=== PATIENT | female | born 1980 | race American Indian/Alaskan Native ===

== ENCOUNTER 2018-08-25 11:42 | Day surgery (SDC) | payer BC ==
[~2018-08-25 11:42] MED LIST: LACTATED RINGER'S 1,000 ML IV; ROCURONIUM 50 MG INJ
[2018-08-25 12:43] LABS: ADD MAN DIFF? NO
[2018-08-25 12:46] LABS: BASOPHILS % 0.5 % (0.0-2.0); EOSINOPHILS # 0.1 10^3/ul (0.0-0.5); EOSINOPHILS % 0.9 % (0.0-7.0); HEMATOCRIT 36.7 % (37.0-47.0); LYMPHOCYTES # 1.7 10^3/ul (0.8-2.9); LYMPHOCYTES % 26.3 % (15.0-51.0); MEAN CORPUSCULAR HEMOGLOBIN 29.9 pg (29.0-33.0); MEAN CORPUSCULAR HGB CONC 32.7 g/dl (32.0-37.0); MEAN CORPUSCULAR VOLUME 91.3 fl (82.0-101.0); MEAN PLATELET VOLUME 9.6 fl (7.4-10.4); MONOCYTE # 0.3 10^3/ul (0.3-0.9); MONOCYTES % 5.4 % (0.0-11.0); NEUTROPHIL # 4.2 10^3/ul (1.6-7.5); NEUTROPHILS % 66.7 % (39.0-77.0); PLATELET COUNT 313 10^3/UL (140-415); RED BLOOD COUNT 4.02 10^6/ul (4.20-5.40); RED CELL DISTRIBUTION WIDTH 13.7 % (11.5-14.5)
[2018-08-25 12:46] LABS: WHITE BLOOD COUNT 6.3 10^3/ul (4.8-10.8)
[2018-08-25 13:03] LABS: ALANINE AMINOTRANSFERASE 31 IU/L (13-69); ALBUMIN 3.6 g/dl (3.3-4.9); ALKALINE PHOSPHATASE 58 IU/L (42-121); ANION GAP 13 (8-16); ASPARTATE AMINO TRANSFERASE 22 IU/L (15-46); BILIRUBIN,INDIRECT 0.8 mg/dl (0-1.1); BILIRUBIN,TOTAL 0.8 mg/dl (0.2-1.3); BLOOD UREA NITROGEN 10 mg/dl (7-20); CALCIUM 9.3 mg/dl (8.4-10.2); CARBON DIOXIDE 26 mmol/L (21-31); CHLORIDE 106 mmol/L (97-110); CREATININE 0.61 mg/dl (0.44-1.00); GLUCOSE 94 mg/dl (70-220); POTASSIUM 3.9 mmol/L (3.5-5.1); SODIUM 141 mmol/L (135-144); TOTAL PROTEIN 7.2 g/dl (6.1-8.1)
[2018-08-25 13:17] LABS: PROTIME 13.3 Sec (11.9-14.9)
[2018-08-25 13:18] LABS: PARTIAL THROMBOPLASTIN TIME 31.2 Sec (23.0-35.0)
[2018-08-25] MEDS ORDERED: DIPHENHYDRAMINE 50 MG INJ IV (15:30)
[2018-08-25] MEDS ORDERED: HYDROmorphONE 1 MG/5 ML IV SYRINGE IV ×2 (15:30)
[2018-08-25] MEDS ORDERED: MEPERIDINE 25 MG INJ IV (15:30)
[2018-08-25] MEDS ORDERED: ALBUTEROL 0.083% (NEB) 2.5 MG/3 ML AMP HHN (15:30)
[2018-08-25] MEDS ORDERED: METOCLOPRAMIDE 10 MG INJ IV (15:30)
[2018-08-25] MEDS ORDERED: ONDANSETRON 4 MG INJ IV (15:30)
[2018-08-25] MEDS ORDERED: FENTAnyl 50 MCG/ML VIAL IV (15:30)
[2018-08-25] MEDS ORDERED: ROPIVACAINE 0.5 % 30 ML VIAL (15:36)
[2018-08-25] MEDS ORDERED: FENTAnyl 50 MCG/ML VIAL (15:36)
[2018-08-25] MEDS ORDERED: LIDOCAINE 100 MG SYRINGE (15:57)
[2018-08-25] MEDS ORDERED: CEFAZOLIN 1 GM INJ (15:57)
[2018-08-25] MEDS ORDERED: SUGAMMADEX SODIUM 200 MG/2 ML VIAL IV (15:57)
[2018-08-25] MEDS ORDERED: SUCCINYLCHOLINE CHLORIDE 100 MG/5 ML SYG IV (15:57)
[2018-08-25] MEDS ORDERED: PROPOFOL 20 ML (15:57)
[2018-08-25] MEDS ORDERED: FLUMAZENIL 0.5 MG INJ (15:57)
[2018-08-25] MEDS ORDERED: METHYLENE BLUE 1% 10 ML INJ (17:00)
[2018-08-25] MEDS: HYDROmorphONE 1 MG/5 ML IV SYRINGE IV (18:19)
[2018-08-25] MEDS: FENTAnyl 50 MCG/ML VIAL IV (18:20)
== END 2018-08-25 19:00 | disposition home or self-care (01) ==
LOC: SDS 11:42
DX: N28.89 Other specified disorders of kidney and ureter (principal)
CPT/HCPCS: 58558; 80053; 85025; 85610; 85730; 87086